=== PATIENT | male | born 1960 | race Two or more races ===

== ENCOUNTER 2017-11-26 10:10 | Outpatient (CLI) | payer OTHER | END 2017-11-26 10:20 | disposition home or self-care (01) | LOC: SONOGRAMA 10:10 | DX: R10.84 Generalized abdominal pain (principal); Z87.442 Personal history of urinary calculi ==

== ENCOUNTER → 2022-04-24 13:16 | Outpatient (CLI) | payer OTHER | END | disposition home or self-care (01) | LOC: LAB 13:16 | PROVIDERS: ATTEND Urology | DX: R31.29 Other microscopic hematuria (principal) ==

== ENCOUNTER 2022-04-25 07:23 | Outpatient (CLI) | payer OTHER | END 2022-04-25 07:34 | disposition home or self-care (01) | LOC: TOM 07:23 | PROVIDERS: ATTEND Urology | DX: R31.29 Other microscopic hematuria (principal) ==